=== PATIENT | female | born 1990 | race African-American/Black ===

== ENCOUNTER 2018-04-23 19:14 | Emergency (ER) | payer MEDICAID ==
[~2018-04-23] VITALS: Ht 167.6 cm; Wt 57.0 kg
[2018-04-23] MEDS ORDERED: IBUPROFEN 600MG TABLET PO ONE (20:30)
[2018-04-23 20:48] VITALS: BP 122/79
== END 2018-04-23 20:49 | disposition home or self-care (01) ==
LOC: ER 19:59
DX: S16.1XXA Strain of muscle, fascia and tendon at neck level, initial encounter (principal); S29.012A Strain of muscle and tendon of back wall of thorax, initial encounter; V49.59XA Passenger injured in collision with other motor vehicles in traffic accident, initial encounter; Y93.89 Activity, other specified; Y92.89 Other specified places as the place of occurrence of the external cause; Y99.8 Other external cause status
CPT/HCPCS: 99283